=== PATIENT | female | born 1990 | race Caucasian/White ===

== ENCOUNTER → 2018-06-11 10:05 | Outpatient (CLI) | payer OTHER, MEDICAID, SELFPAY ==
--- NOTE | 2018-06-11 | DI.MG.S_ITS ---
BILATERAL DIGITAL DIAGNOSTIC MAMMOGRAM 3D/2D: 06/11/2018 CLINICAL: Baseline exam. Right breast tenderness and lump. No prior exams were available for comparison. The tissue of both breasts is heterogeneously dense. This may lower the sensitivity of mammography. There is a triangular marker overlying the skin of the upper inner right breast at middle depth at the site of the patient's reported palpable abnormality. There is no underlying mammographic abnormality. No significant masses, calcifications, or other findings are seen in either breast. IMPRESSION: INCOMPLETE: NEEDS ADDITIONAL IMAGING EVALUATION No mammographic abnormality to correlate with the site of the patient's reported focal palpable abnormality in the upper inner right breast. Targeted diagnostic ultrasound recommended for further evaluation, which will be performed immediately following this exam. This exam was interpreted at Station ID: [id number]. NOTE: For mammograms, a report in lay terms will be sent to the patient. Approximately 15% of breast malignancies will not be visualized mammographically. In the management of a palpable breast mass, a negative mammogram must not discourage biopsy of a clinically suspicious lesion. Electronically Signed By: Eldon Dykes M.D. ecl/:06/11/2018 10:43:16 letter sent: Additional Imaging Needed ACR BI-RADS Category 0: Incomplete [id number]
--- NOTE | 2018-06-11 | DI.US.S_ITS ---
LIMITED ULTRASOUND OF RIGHT BREAST: 06/11/2018 CLINICAL: Palpable tender right breast lump x 2 months. Comparison is made to exam dated: 06/11/2018 [facility]. Real-time and Doppler ultrasound of the right breast upper inner quadrant were performed. English scale images of the real-time examination were reviewed. Targeted ultrasound was performed in the region of the patient's reported focal tenderness and palpable abnormality in the right breast at 1:30 position 5 cm from the nipple. No underlying breast mass or abnormality is identified. IMPRESSION: NEGATIVE 1) No ultrasound findings to explain patient's reported focal tenderness and palpable abnormality in the right breast. Recommend clinical follow-up for further evaluation and management of the patient's reported symptoms. 2) There is no sonographic evidence of malignancy in the right breast. Annual screening mammography beginning at age 40 is recommended, unless earlier high-risk screening is warranted due to individual patient risk factors for the development of breast malignancy. The patient is advised to monitor her breasts and to return sooner for re-evaluation should she feel anything grow or change. This exam was interpreted at Station ID: [id number]. Electronically Signed By: Eldon Dykes M.D. ecl/:06/11/2018 11:15:13 letter sent: Clinical Evaluation Ultrasound BI-RADS: 1 Negative
== END ==
PROVIDERS: PCP Nurse Practitioner Family; Visit Provider Nurse Practitioner Family
DX: R92.8 Other abnormal and inconclusive findings on diagnostic imaging of breast (principal); N64.4 Mastodynia; N63.12 Unspecified lump in the right breast, upper inner quadrant
CPT/HCPCS: 76642; 77066; G0279

== ENCOUNTER → 2018-09-20 08:26 | Outpatient (CLI) | payer OTHER, MEDICAID, SELFPAY ==
--- NOTE | 2018-09-20 | DI.RAD.S_ITS ---
PROCEDURE: XR LUMBAR SPINE 2-3V INDICATIONS: LOW BACK PAIN TECHNIQUE: 3 views of the lumbar spine were acquired. COMPARISON: None. FINDINGS: Bones: There are 5 lumbar-type vertebral bodies. The lowest intervertebral disk space is designated as L5-S1. The vertebral body heights are well-maintained without evidence to suggest an acute compression fracture. The bone mineralization is within normal limits. There is a limbus vertebra identified along the anterior-inferior L3 endplate in the anterior-superior L4 end plate. Soft tissues: Single prominent air-filled small bowel loop within the midabdomen is not well characterized. Air and stool are seen within the colon. Otherwise, the soft tissues of the imaged abdomen and pelvis are within normal limits. IMPRESSION: 1. L3 and L4 limbus vertebra. 2. No significant degenerative changes of the lumbar spine. Dictated by: Carter Nuñez M.D. on 09/20/2018 at 10:42 Approved by: Carter Nuñez M.D. on 09/20/2018 at 10:55
== END ==
PROVIDERS: PCP Nurse Practitioner Family; Visit Provider Nurse Practitioner Family
DX: M54.5 Low back pain (principal)
CPT/HCPCS: 72100

== ENCOUNTER → 2019-10-09 15:43 | Outpatient (CLI) | payer OTHER, MEDICAID, SELFPAY ==
[2019-10-09 17:03] LABS: Add Manual Diff / Slide Review NO; Appearance Urine UA CLEAR; Basophils Absolute Auto 0 /uL (0-100); Basophils Percent Auto 0.5 % (0-2); Bilirubin Urine UA NEGATIVE (NEGATIVE); Color Urine UA YELLOW; Eosinophils Absolute Auto 100 /uL (0-450); Glucose Urine UA NEGATIVE (Negative); Hemoglobin 13.1 g/dL (12.0-16.0); Ketones Urine UA NEGATIVE (NEGATIVE); Leukocyte Esterase Urine UA NEGATIVE (NEGATIVE); Lymphocytes Absolute Auto 1800 /uL (1100-4500); Lymphocytes Percent Auto 25.9 % (25-40); Mean Corpuscular HGB Conc 34.6 % (30-36); Mean Corpuscular Hemoglobin 31.1 PG (26-34); Mean Corpuscular Volume 89.8 fL (80-100); Monocytes Absolute Auto 400 /uL (0-900); Neutrophils Absolute Auto 4700 /uL (1500-7000); Neutrophils Percent Auto 66.6 % (50-75); Nitrite Urine UA NEGATIVE (Negative); Occult Blood Urine UA TRACE-LYSED (Negative); Platelet Count 194 X10^3/uL (150-400); Protein Urine UA NEGATIVE (Negative); Red Blood Cell Count 4.23 X10^6/uL (4.0-5.2); Red Cell Distribution Width 13.5 % (11.6-14.8); Specific Gravity Urine UA 1.025 (1.000-1.035); Urobilinogen Urine UA 0.2 E.U./dL (0.2); White Blood Cell Count 7.1 X10^3/uL (4.5-11.0)
[2019-10-10 04:27] LABS: RPR Screen Non Reactive (Non Reactive)
[2019-10-10 09:20] LABS: Varicella IgG Antibody 175 index (Immune >165)
[2019-10-10 16:42] LABS: Hepatitis B Surface Antigen NEGATIVE s/c (NEGATIVE); Rubella Antibody IgG 94.6 IU/mL (>15)
[2019-10-10 16:58] LABS: HIV 1 & 2 Ab/Ag 4th Gen Combo NEGATIVE (NEGATIVE); Hep C Virus Ab w/Reflex Quant NEGATIVE s/c (NEGATIVE)
== END ==
PROVIDERS: PCP Nurse Practitioner Family; Referring Provider Specialist; Visit Provider Specialist
DX: Z34.01 Encounter for supervision of normal first pregnancy, first trimester (principal)
CPT/HCPCS: 36415; 80055; 81003; 86787; 86803; 86850; 86900; 86901; 87389

== ENCOUNTER → 2019-11-13 11:01 | Outpatient (CLI) | payer OTHER, MEDICAID, SELFPAY ==
[2019-11-13 14:36] LABS: Urine N gonorrhoeae NOT DETECTED
[2019-11-13 14:39] LABS: Urine Chlamydia NOT DETECTED
== END ==
PROVIDERS: PCP Nurse Practitioner Family; Visit Provider Specialist
DX: Z11.3 Encounter for screening for infections with a predominantly sexual mode of transmission (principal); Z34.02 Encounter for supervision of normal first pregnancy, second trimester
CPT/HCPCS: 87491; 87591

== ENCOUNTER → 2020-02-06 08:01 | Outpatient (CLI) | payer OTHER, MEDICAID, SELFPAY ==
--- NOTE | 2020-02-06 08:02 | DI.US.S_ITS ---
PROCEDURE: US OB LIMITED INDICATIONS: F/U ANT ABD WALL CORD/PLACENTAL CORD INSERTION, KIDNEYS OUTSIDE/PRIOR DATING DATA: Last menstrual period (LMP): 08/07/19. LMP-based estimated date of delivery (ALBERT): 05/13/20 . First dating scan (date and location): 10/09/19, by Dr. Dominguez . Estimated date of delivery (ALBERT) from first dating scan: 05/09/[address] Vera . TECHNIQUE: Real-time scanning was performed of the fetus, with image documentation and biometric measurements. Endovaginal scanning: Not needed COMPARISON: None. FINDINGS: General: A single living intrauterine gestation is present. Presentation: Placenta: Placental position is anterior, without previa. Amniotic fluid index: 13.5 cm, normal range is 5-24 cm. heart rate: 131 beats per minute. Other: No hydronephrosis appears present. Cortical echogenicity is in the normal range. The orthotopic cord insertion. IMPRESSION: Completion of anatomic survey, with kidneys and orthotopic three-vessel cord insertion identified.. Dictated by: Jorge Morales M.D. on 02/06/2020 at 12:10 Approved by: Jorge Morales M.D. on 02/06/2020 at 12:16
== END ==
PROVIDERS: Referring Provider Specialist; Visit Provider Specialist
DX: Z36.2 Encounter for other antenatal screening follow-up (principal); Z3A.20 20 weeks gestation of pregnancy
CPT/HCPCS: 76815

== ENCOUNTER → 2020-04-14 18:11 | Outpatient (CLI) | payer OTHER, SELFPAY ==
[2020-04-15 15:03] LABS: Strep Grp B PCR NEG for Grp B Strep
== END ==
PROVIDERS: Visit Provider Obstetrics & Gynecology
DX: Z34.03 Encounter for supervision of normal first pregnancy, third trimester (principal); Z3A.36 36 weeks gestation of pregnancy
CPT/HCPCS: 87653

== ENCOUNTER 2020-05-13 11:45 | Outpatient (CLI) | payer OTHER, SELFPAY ==
--- NOTE | 2020-05-13 13:31 | PM.OBTRLD ---
Visit Information Visit Information Date of evaluation: 05/13/20 Primary OB Provider: Lisa Martin Reason for Evaluation: Yes non-stress test non-stress test reason: other (Postdates) [facility] Medical History (Updated 05/13/20 @ 13:33 by Lisa Martin MD) 40 weeks gestation of Breast lump Surgical History (Updated 10/09/19 @ 11:11 by Milly Decker, RN) [place] teeth removed (~2019) Family History (Updated 10/09/19 @ 11:07 by Milly Decker, RN) Father Benign brain tumor Mother Bipolar 1 disorder Depression Alcohol abuse Anxiety Grandfather No problems noted. Grandmother No problems noted. Grandfather Myocardial infarction Hypertension Grandmother Alzheimers disease Family/Other Myocardial infarction Hypertension Hypothyroid Social History marital status: unmarried,living together household members: family caregiver/support person: No pets and animals: No education level: high school occupational status: unemployed current occupational exposures/hazards: Yes Previous occupational history: [email or web address] Covid-19 special buffy needs: No Smoking Status: Never smoker second hand exposure: No alcohol intake: never substance use type: marijuana Evaluation Evaluation Baseline heart rate: 120 Variability: Moderate (11-25) monitor accelerations: Present monitor decelerations: Variable (Patient with concern for deceleration initially but after prolonged monitoring just low baseline) Contraction Frequency (minutes): 8 Uterine Contraction Intensity: Mild Category of Tracing: Reactive Diagnosis, Plan/Disposition Final Diagnosis (1) 40 weeks gestation of : Status: Acute Plan/Disposition Plan: Patient with rest biophysical within normal limits and normal amniotic fluid volume. Follow-up NST in 3 days. OB Disposition: home
== END 2020-05-13 13:30 | disposition home or self-care (01) ==
LOC: LABOR 12:30 → OB 16:49
PROVIDERS: Referring Provider Specialist; Visit Provider Specialist
DX: O48.0 Post-term pregnancy (principal); Z3A.41 41 weeks gestation of pregnancy
CPT/HCPCS: 59025; 59050; G0378; G0379

== ENCOUNTER 2020-05-16 09:46 | Outpatient (CLI) | payer OTHER, SELFPAY ==
--- NOTE | 2020-05-16 10:11 | PM.OBTRLD ---
Visit Information Visit Information Date of evaluation: 05/16/20 Primary OB Provider: Lisa Martin On-call OB Provider: Cheyenne Vargas Reason for Evaluation: Yes non-stress test non-stress test reason: other (Postdates) Vital Signs Vital Signs: Temperature 36.2? blood pressure 108/67 heart rate 55 PFSH Medical History (Updated 05/13/20 @ 13:33 by Lisa Martin MD) 40 weeks gestation of Breast lump Surgical History (Updated 10/09/19 @ 11:11 by Milly Decker, RN) [place] teeth removed (~2019) Family History (Updated 10/09/19 @ 11:07 by Milly Decker, LEONA) Father Benign brain tumor Mother Bipolar 1 disorder Depression Alcohol abuse Anxiety Grandfather No problems noted. Grandmother No problems noted. 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 NST reactive. Follow-up with Dr. Martin as scheduled in 2 days. OB Disposition: home
== END 2020-05-16 10:20 | disposition home or self-care (01) ==
LOC: LABOR 09:53 → OB 05-18 15:40
PROVIDERS: Referring Provider Specialist; Visit Provider Specialist
DX: O48.0 Post-term pregnancy (principal); Z3A.40 40 weeks gestation of pregnancy
CPT/HCPCS: 59025; G0378; G0379

== ENCOUNTER 2020-05-17 09:36 | Inpatient (IN) | payer OTHER, SELFPAY ==
--- NOTE | 2020-05-17 10:51 | P.HPOB_ITS ---
OB HPI Date/Time Date of admission: 05/17/20 Date Patient Seen: 05/17/20 Time Patient Seen: 10:53 History of Present Condition Chief complaint: observation : 1 Para: 0 Estimated Date of Delivery: 05/10/20 Estimated Gestational Age (weeks): 41 Narrative: Ewa Nobles is a 30 year old at 41 weeks 0 days presenting for evaluation for ruptured membranes. The patient reports a gush of mucousy fluid at 3:45 a.m., with ongoing leakage of bloody fluid. The patient is unclear if this is mucousy or liquid, if there is any clear component, and the other characteristics of the liquid. She reports good movement, contractions irregularly, no headaches, visual changes, chest pain, or any other complaints. She reports an otherwise uncomplicated , and has no contributory medical, surgical, family, or social history. Indications Indication for induction OB: post dates History of Present care: good care, initiated at week # (9), number of visits (13) and po unds weight gain (38) Dating criteria: LMP confirmed by 1st trimester US Ultrasounds: normal 1st trimester US and normal mid trimester US Obstetrical complications: none Medical complications: none Preadmission Labs Blood type: A (+) positive -: Antibody screen: negative, GBS status: negative, HBsAG: negative, HIV: negative and RPR/VDLR: negative -: Chlamydia screen: not detected and Gonorrhea screen: not detected -: Rubella: immune and Varicella: immune 1 hr GTT: 59 Narrative: Evaluation Evaluation Baseline heart rate: 120 Variability: Moderate (11-25) monitor accelerations: Present monitor decelerations: Absent Contraction Frequency (minutes): 5 Uterine Contraction Intensity: Moderate Category of Tracing: Reactive Status: Category l Cervical dilation (cm): 1 Cervical effacement (%): 60 station: -3 Non-invasive Membranes Rupture Test: positive (in setting of blood) PFSH Medical History 40 weeks gestation of Breast lump Surgical History [place] teeth removed (~2019) Family History Father Benign brain tumor Mother Bipolar 1 disorder Depression Alcohol abuse Anxiety Grandfather No problems noted. Grandmother No problems noted. 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 Covid-19 special buffy needs: No Smoking Status: Never smoker second hand exposure: No alcohol intake: never substance use type: marijuana Meds Home Medications and Allergies Home Medications Medication Instructions Recorded Confirmed Type prenat.vits,chase,bdz-jrmi-wdbtm 1 tab PO DAILY 10/09/19 05/13/20 History ondansetron 4 mg disintegrating See Rx Instructions .ROUTE 11/04/19 05/13/20 Rx tablet .COMPLEX #20 each Allergies Allergy/AdvReac Type Severity Reaction Status Date / Time Penicillins Allergy Severe Extreme Verified 04/22/20 09:31 Hives Review of Systems Constitutional Constitutional: Reports system reviewed and no additional complaints, except as documented Cardiovascular Cardiovascular: Reports system reviewed and no additional complaints, except as documented Respiratory Respiratory: Reports system reviewed and no additional complaints, except as documented Gastrointestinal Gastrointestinal: Reports system reviewed and no additional complaints, except as documented Genitourinary Genitourinary: Reports as per HPI Neurologic Neurologic: Reports system reviewed and no additional complaints, except as documented Exam Vital Signs (past 8 hours): 119/66, HR 65, afebrile Const General: cooperative, healthy appearing and comfortable Resp Effort & Inspection: normal respiratory effort Auscultation: clear to auscultation bilaterally Cardio Rate: regular rate Rhythm: regular rhythm GI Palpation: soft and No tender Neuro General: patient alert, patient awake and patient oriented x3 Assessment and Plan Assessment and Plan Assessment and Plan narrative: This patient presents with apparent ruptured membranes at 41 weeks, with leakage of either bloody fluid or more bloody show than is typical and a history consistent with SROM. The patient wishes to desire induction if possible, but we discussed that in the setting of PROM, the guidelines are to expedite delivery to decrease the risk of maternal and infection. The patient and her partner are in agreement with induction of labor if she is not found to be laboring after a short period of expectant management. - CBC, T&S, covid testing now - HLIV, EFM/toco per protocol - GBS negative - EFW 8#
--- NOTE | 2020-05-17 16:31 | PM.OBHP.1 ---
OB HPI Date/Time Date of admission: 05/17/20 Date Patient Seen: 05/17/20 Time Patient Seen: 16:31 History of Present Condition Chief complaint: observation : 1 Para: 0 Estimated Date of Delivery: 05/10/20 Estimated Gestational Age (weeks): 41 Narrative: Ewa Nobles is a 30 year old female admitted in active labor History of Present care: good care, initiated at week # (9), number of visits (14) and pounds weight gain (38) Dating criteria: LMP confirmed by 1st trimester US Obstetrical complications: none Medical complications: none Preadmission Labs Blood type: A (+) positive -: Antibody screen: negative, GBS status: negative, HBsAG: negative, HIV: negative and RPR/VDLR: negative -: Chlamydia screen: not detected and Gonorrhea screen: not detected -: Rubella: immune HCAB: negative 1 hr GTT: 69 Evaluation Evaluation Baseline heart rate: 120 Variability: Moderate (11-25) monitor accelerations: Present monitor decelerations: Absent Contraction Frequency (minutes): 4 Uterine Contraction Intensity: Strong/Firm Status: Category l Cervical dilation (cm): 3 Cervical effacement (%): 100 station: -1 Non-invasive Membranes Rupture Test: positive [facility] Medical History 40 weeks gestation of Breast lump Surgical History [place] teeth removed (~2019) Family History Father Benign brain tumor Mother Bipolar 1 disorder Depression Alcohol abuse Anxiety Grandfather No problems noted. Grandmother No problems noted. 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 Covid-19 special buffy needs: No Smoking Status: Never smoker second hand exposure: No alcohol intake: never substance use type: marijuana Meds Home Medications and Allergies Home Medications Medication Instructions Recorded Confirmed Type prenat.vits,chase,ygo-ynny-qvfpy 1 tab PO DAILY 10/09/19 05/13/20 History ondansetron 4 mg disintegrating See Rx Instructions .ROUTE 11/04/19 05/13/20 Rx tablet .COMPLEX #20 each Allergies Allergy/AdvReac Type Severity Reaction Status Date / Time Penicillins Allergy Severe Extreme Verified 04/22/20 09:31 Hives Review of Systems Review of Systems Narrative: Patient with unclear rupture membranes 3:30 a.m. good movement. No headaches, scotomata, epigastric pain. ROS: Yes All systems reviewed with the patient and are negative except as otherwise documented Exam Narrative Exam Narrative: HEENT exam within normal limits. Lungs are clear to auscultation percussion. Heart is regular rate and rhythm no S3-S4 murmurs. Abdomen is gravid and soft. Extremities with trace edema and nontender. Assessment and Plan Assessment and Plan Assessment and Plan narrative: 41 week gestation in active labor. Anticipate vaginal delivery.
[2020-05-17 16:56] LABS: Add Manual Diff / Slide Review NO; Basophils Absolute Auto 0 /uL (0-100); Basophils Percent Auto 0.4 % (0-2); Eosinophils Absolute Auto 0 /uL (0-450); Eosinophils Percent Auto 0.1 % (2-4); Hematocrit 39.1 % (36-46); Hemoglobin 13.7 g/dL (12.0-16.0); Lymphocytes Absolute Auto 1000 /uL (1100-4500); Mean Corpuscular Hemoglobin 32.8 PG (26-34); Mean Corpuscular Volume 93.9 fL (80-100); Monocytes Absolute Auto 700 /uL (0-900); Monocytes Percent Auto 5.6 % (3-14); Neutrophils Absolute Auto 10400 /uL (1500-7000); Neutrophils Percent Auto 85.9 % (50-75); Platelet Count 140 X10^3/uL (150-400); Red Blood Cell Count 4.16 X10^6/uL (4.0-5.2); Red Cell Distribution Width 12.6 % (11.6-14.8)
[2020-05-17 17:02] LABS: COVID19 -Nasal RAPID Negative (Negative)
[2020-05-17 19:40] VITALS: BP 119/66
[2020-05-17] MEDS: LACTATED RINGERS 1,000 ML 100 ML IV (21:10)
[2020-05-17] MEDS: LACTATED RINGERS 1,000 ML 125 ML IV (22:10)
[2020-05-18] MEDS: LACTATED RINGERS 1,000 ML 100 ML IV (03:28)
--- NOTE | 2020-05-18 05:42 | PM.OBPRVD ---
Labor & Delivery Delivery date: 05/18/20 Intrapartal events: Prolonged 2nd Stage > 2.5 hours Delivery augmentation: pitocin Delivery monitor: external FHT and external uterine Route of delivery: L&D Laceration Description: Perineal - 2nd Degree Delivery repair: chromic (3 0) Estimated blood loss (mL): 100 Anesthesia type: Epidural Narrative: Patient arrived on Labor and delivery in early labor. Amnio sure was positive but was contaminated by blood. It did appear that she had rupture of membranes significantly later. Patient received an epidural catheter for pain control. heart tones category 1 to category 2. Pitocin augmentation was started after contractions spaced out with the epidural. When the patient became complete there was a 10 minute deceleration from the baseline 120 is down to 60. Pitocin was turned off, fluid bolus was given, O2 was given. The fetus appeared to recover and so pushing was begun. The patient developed a fever to 101. heart tones category 2. Patient had a spontaneous delivery over an intact perineum. The viable male was placed on maternal abdomen. After the cord stopped pulsating the cord was clamped, cut, and cord bloods obtained. The placenta delivered spontaneously, intact, with 3 vessels. There were to sidewall vaginal tears and a second-degree midline perineal tear that were repaired with 3 0 chromic suture. Estimated blood loss 100 cc. Both baby and mother doing well. Baby 1: Infant gender: Male Presentation: vertex position: Right Occiput Anterior cord vessel description: 3 Vessels score (1 min): 8 score (5 min): 9 Plan for aftercare: Routine care
[2020-05-18] MEDS: IBUPROFEN 600 MG TABLET PO ×3 (08:57→21:34)
[2020-05-18] MEDS: LANOLIN OINT 7 GM 1 APPLIC TOP (08:57)
[2020-05-18] MEDS: DERMOPLAST SPRAY 20% 60 ML 1 SPRAY TOP (08:58)
[2020-05-18] MEDS: OXYCODONE/ACETAMINOPHEN 5/325 TABLET 1 TAB PO ×2 (11:58→18:00)
[2020-05-18] MEDS: DOCUSATE 100 MG CAPSULE PO (21:35)
[2020-05-19] MEDS: IBUPROFEN 600 MG TABLET PO (06:21)
[2020-05-19 06:48] LABS: Add Manual Diff / Slide Review NO; Basophils Absolute Auto 0 /uL (0-100); Basophils Percent Auto 0.4 % (0-2); Eosinophils Absolute Auto 100 /uL (0-450); Eosinophils Percent Auto 0.8 % (2-4); Hematocrit 30.6 % (36-46); Hemoglobin 10.8 g/dL (12.0-16.0); Lymphocytes Absolute Auto 2100 /uL (1100-4500); Mean Corpuscular HGB Conc 35.1 % (30-36); Mean Corpuscular Hemoglobin 33.5 PG (26-34); Mean Corpuscular Volume 95.2 fL (80-100); Monocytes Absolute Auto 900 /uL (0-900); Monocytes Percent Auto 8.2 % (3-14); Neutrophils Absolute Auto 8400 /uL (1500-7000); Neutrophils Percent Auto 72.6 % (50-75); Platelet Count 125 X10^3/uL (150-400); Red Blood Cell Count 3.21 X10^6/uL (4.0-5.2); White Blood Cell Count 11.5 X10^3/uL (4.5-11.0)
[2020-05-19 09:21] VITALS: BP 110/70; PULSE 73; RESP 16; TEMP 36.7
--- NOTE | 2020-05-19 10:52 | PM.OBDS.1 ---
Discharge Providers Provider Date of admission: 05/17/20 09:36 Discharge Date: 05/19/20 Consults: 05/17/20 14:55 Consult to Anesthesiology Urgent Comment: Consulting Provider: Anesthesiologist Reason for consultation: Epidural Has provider been notified: No 05/19/20 05:41 Consult to Sales Marketing Coordinator Routine Comment: Discharge provider: Lisa Martin MD Summary Hospital Course Date Patient Seen: 05/19/20 Time Patient Seen: 10:52 Procedures: Epidural catheter, Pitocin augmentation, spontaneous vaginal delivery, repair of second-degree tear Hospital Course: Patient arrived on Labor and delivery in active labor. She received an epidural catheter for pain control. She was started on Pitocin to augment labor. She had a spontaneous vaginal delivery with a repair of a second-degree tear Peripartum Data Delivery Method: Natural Vaginal Laceration Description: Perineal - 2nd Degree and Vaginal - 1st Degree Procedures: Epidural catheter, spontaneous vaginal delivery, repair of second-degree tear complications: none 1: Gender: Male Disposition of : home Discharge Diagnosis (1) Vaginal delivery: Status: Acute Status at Discharge Cognitive/behavioral status at discharge: oriented Functional status at discharge: independent ambulation Overall status at discharge: patient is progressing back to baseline Time Spent with Patient Time attestation: Total time spent providing and/or coordinating discharge services: Time spent: Less than 30 minutes Objective Labs Result Diagrams: 05/19/20 06:30 Labs: Laboratory Results - last 24 hr 05/19/20 06:30 WBC 11.5 H RBC 3.21 L Hgb 10.8 L Hct 30.6 L MCV 95.2 MCH 33.5 MCHC 35.1 RDW 13.0 Plt Count 125 L Neut % (Auto) 72.6 Lymph % (Auto) 18.0 L [place] % (Auto) 8.2 Eos % (Auto) 0.8 L Baso % (Auto) 0.4 Neut # (Auto) 8400 H Lymph # (Auto) 2100 [place] # (Auto) 900 Eos # (Auto) 100 Baso # (Auto) 0 Exam Vital Signs (past 8 hours): - 05/19/20 09:21 Temperature 98.0 F Pulse Rate 73 Respiratory Rate 16 Blood Pressure 110/70 Narrative Exam Narrative: Abdomen is soft, nontender. Uterus is firm, at U, nontender. Repair is intact. Extremities with trace edema and nontender. Patient's blood type is A positive, she is rubella immune, she received the Tdap in the 3rd trimester Discharge Plan Discharge Plan Patient Disposition: Home Discharge orders & Medications Prescriptions: New docusate sodium [DOK] 100 mg Capsule 100 mg PO DAILY Qty: 30 RF: 0 oxycodone-acetaminophen 5-325 mg Tablet 1 tab PO Q4HR PRN (Reason: Pain, Moderate (4-6)) Qty: 20 RF: 0 ibuprofen 600 mg Tablet 600 mg PO Q6HR PRN (Reason: Pain, Mild (1-3)) Qty: 30 RF: 0 Continued prenat.vits,chase,wwi-gbcc-wpeuz Tablet 1 tab PO DAILY RF: 0 Follow up/Referrals: Lisa Martin MD [Physician] - 07/01/20 (Will need a time in [place]) Diet/Activity/Treatments Diet: Regular Activity: Nothing in vagina for 6 weeks Skin/Wound/Dressing Care Report to your healthcare provider any signs of infection, such as:: chills, fever and increased pain
[2020-05-19] MEDS: LANOLIN OINT 7 GM 1 APPLIC TOP (12:03)
== END 2020-05-19 15:00 | disposition home or self-care (01) | DRG 807 ==
PROVIDERS: Admitting Provider Specialist; Referring Provider Specialist; Visit Provider Specialist
DX: O48.0 Post-term pregnancy (principal); Z37.0 Single live birth; Z3A.41 41 weeks gestation of pregnancy; O63.1 Prolonged second stage (of labor); Z01.812 Encounter for preprocedural laboratory examination; Z20.828 Contact with and (suspected) exposure to other viral communicable diseases; O70.1 Second degree perineal laceration during delivery
CPT/HCPCS: 01967; 36415; 59025; 59050; 59400; 85025; 86850; 86900; 86901; 87635; G0379

== ENCOUNTER → 2020-10-30 11:50 | Outpatient (CLI) | payer OTHER, SELFPAY | PROVIDERS: PCP Family Medicine; Visit Provider Family Medicine | DX: N64.4 Mastodynia (principal) | CPT/HCPCS: 87070; 87075; 87077; 87147; 87186; 87205 ==

== ENCOUNTER → 2022-01-05 10:00 | Outpatient (CLI) | payer OTHER, MEDICAID, SELFPAY | PROVIDERS: PCP Family Medicine; Visit Provider Nurse Practitioner Family | DX: J02.9 Acute pharyngitis, unspecified (principal) | CPT/HCPCS: 87070; 87880 ==

== ENCOUNTER → 2022-10-06 11:34 | Outpatient (CLI) | payer OTHER, MEDICAID, SELFPAY | PROVIDERS: PCP Family Medicine; Visit Provider Obstetrics & Gynecology | DX: Z34.81 Encounter for supervision of other normal pregnancy, first trimester (principal) | CPT/HCPCS: 87086 ==

== ENCOUNTER → 2022-10-20 11:31 | Outpatient (CLI) | payer OTHER, MEDICAID, SELFPAY ==
[2022-10-20 12:47] LABS: Add Manual Diff / Slide Review NO; Basophils Absolute Auto 0 /uL (0-100); Basophils Percent Auto 0.5 % (0-2); Eosinophils Absolute Auto 100 /uL (0-450); Eosinophils Percent Auto 1.3 % (2-4); Hematocrit 34.2 % (36-46); Hemoglobin 11.9 g/dL (12.0-16.0); Lymphocytes Absolute Auto 1900 /uL (1100-4500); Lymphocytes Percent Auto 29.1 % (25-40); Mean Corpuscular HGB Conc 34.8 % (30-36); Mean Corpuscular Hemoglobin 30.6 PG (26-34); Monocytes Absolute Auto 300 /uL (0-900); Monocytes Percent Auto 5.1 % (3-14); Neutrophils Absolute Auto 4300 /uL (1500-7000); Platelet Count 210 X10^3/uL (150-400); Red Blood Cell Count 3.88 X10^6/uL (4.0-5.2); Red Cell Distribution Width 13.4 % (11.6-14.8); White Blood Cell Count 6.7 X10^3/uL (4.5-11.0)
[2022-10-20 13:42] LABS: Hepatitis B Surface Antigen NEGATIVE s/c (NEGATIVE); Rubella Antibody IgG 92.5 IU/mL (>15)
[2022-10-20 13:52] LABS: HIV 1 & 2 Ab/Ag 4th Gen Combo NEGATIVE (NEGATIVE); Hep C Virus Ab w/Reflex Quant NEGATIVE s/c (NEGATIVE)
[2022-10-21 05:49] LABS: RPR Screen Non Reactive (Non Reactive)
[2022-10-21 08:36] LABS: Varicella IgG Antibody 236 index (Immune >165)
== END ==
PROVIDERS: PCP Family Medicine; Referring Provider Obstetrics & Gynecology; Visit Provider Obstetrics & Gynecology
DX: Z34.81 Encounter for supervision of other normal pregnancy, first trimester (principal)
CPT/HCPCS: 36415; 80055; 86787; 86803; 86850; 86900; 86901; 87389

== ENCOUNTER → 2022-11-29 11:46 | Outpatient (CLI) | payer OTHER, MEDICAID, SELFPAY ==
[2022-12-01 21:42] LABS: AFP Value 39.2 ng/mL (.); Gest Age on Col Date 16.7 weeks (.); Insulin Dep Diabetes No (.); OSBR Risk 1IN 9231 (.); Results Report (.); Test Results *Screen Negative* (.)
== END ==
PROVIDERS: PCP Family Medicine; Referring Provider Obstetrics & Gynecology; Visit Provider Obstetrics & Gynecology
DX: Z34.82 Encounter for supervision of other normal pregnancy, second trimester (principal); Z3A.16 16 weeks gestation of pregnancy
CPT/HCPCS: 36415; 82105

== ENCOUNTER → 2022-12-28 12:57 | Outpatient (CLI) | payer OTHER, MEDICAID, SELFPAY ==
--- NOTE | 2022-12-28 12:58 | DI.US.S_ITS ---
PROCEDURE: US OB >= 14 WEEKS FETUS INDICATIONS: ANATOMY OUTSIDE/PRIOR DATING DATA: Last menstrual period (LMP): 08/04/2022. LMP-based estimated date of delivery (ALBERT): 05/11/2023. First dating scan (date and location): 10/06/2022. Estimated date of delivery (ALBERT) from first dating scan: 05/10/2023. The calculations are made using the clinical ALBERT of 05/11/2023. TECHNIQUE: Real-time scanning was performed of the fetus, with image documentation and biometric measurements. Endovaginal scanning: None COMPARISON: [facility], , OB >= 14 WEEKS FETUS, 05/13/2020, 11:31. FINDINGS: General: A single living intrauterine gestation is present. Presentation: Vertex. Placenta: Placental position is anterior , without previa. Amniotic fluid index: 16.6 cm, normal range is 5-24 cm. Single deepest vertical pocket is 4.6 cm. heart rate: 140 beats per minute. Maternal cervical canal: 3.3 cm long. Normal lower limit is 2.5 cm. biometrics: Biparietal diameter: 5.0 cm, 21 week 0 day Head circumference: 19.1 cm, 21 week 3 day Abdominal circumference: 15.4 cm, 20 week 4 day Femur length: 3.5 cm, 21 week 0 day Clinically estimated gestational age: 20 week 6 day Composite gestational age from present scan: 21 week 0 day Estimated weight and percentile: 381 g, 44 percentile Anatomic survey: Neuro: Ventricles are non-dilated at less than 10 mm. Cisterna magna is normal at 3-11 mm. Cerebellum is normal in size and morphology. Nuchal skin fold: Normal at less than 6 mm between 14-21 weeks gestational age. Face: Nose and lips, facial profile are normal. Spine: No evidence for spina bifida. Heart: 4-chambered heart is present, with normal ventricular outflow tracts. Diaphragm: Diaphragm is intact. Stomach: Left-sided stomach is present. Kidneys: No hydronephrosis. Normal is less than 5 mm in 2nd trimester, less than 7 mm in 3rd trimester. Cord: 3-vessel cord has orthotopic insertion. Bladder: Normal in size. Extremities: All 4 extremities identified. IMPRESSION: Single live intrauterine consistent with a 21 week 0 day gestation by current ultrasound Approved by: Hermes Muhammad M.D. on 12/28/2022 at 19:45
== END ==
PROVIDERS: PCP Family Medicine; Referring Provider Obstetrics & Gynecology; Visit Provider Obstetrics & Gynecology
DX: Z34.82 Encounter for supervision of other normal pregnancy, second trimester (principal); Z3A.21 21 weeks gestation of pregnancy
CPT/HCPCS: 76811

== ENCOUNTER → 2023-01-24 14:04 | Outpatient (CLI) | payer OTHER, MEDICAID, SELFPAY ==
[2023-01-24 16:44] LABS: Hematocrit 32.1 % (36-46); Hemoglobin 11.6 g/dL (12.0-16.0)
[2023-01-24 17:46] LABS: GTT (PREG) 1 Hour PP 50gm Dose 68 mg/dL (76-139)
== END ==
PROVIDERS: PCP Family Medicine; Referring Provider Obstetrics & Gynecology; Visit Provider Obstetrics & Gynecology
DX: Z34.82 Encounter for supervision of other normal pregnancy, second trimester (principal); Z3A.26 26 weeks gestation of pregnancy
CPT/HCPCS: 36415; 82950; 85014; 85018

== ENCOUNTER → 2023-04-18 11:33 | Outpatient (CLI) | payer OTHER, MEDICAID, SELFPAY ==
[2023-04-19 13:25] LABS: Strep Grp B PCR POS for Grp B Strep
[2023-04-19 15:37] LABS: Candida species Negative (Negative); Gardnerella vaginalis Negative (Negative); Trichomoas vaginalis Negative (Negative)
== END ==
PROVIDERS: PCP Family Medicine; Visit Provider Obstetrics & Gynecology
DX: N89.8 Other specified noninflammatory disorders of vagina (principal); Z3A.36 36 weeks gestation of pregnancy
CPT/HCPCS: 87081; 87480; 87510; 87653; 87660

== ENCOUNTER 2023-05-13 19:16 | Inpatient (IN) | payer OTHER, MEDICAID, SELFPAY ==
[2023-05-13 21:46] VITALS: BP 126/71
[2023-05-13 21:49] LABS: Add Manual Diff / Slide Review NO; Basophils Absolute Auto 100 /uL (0-100); Basophils Percent Auto 0.8 % (0-2); Eosinophils Absolute Auto 100 /uL (0-450); Eosinophils Percent Auto 1.1 % (2-4); Hematocrit 35.5 % (36-46); Hemoglobin 12.3 g/dL (12.0-16.0); Lymphocytes Absolute Auto 2400 /uL (1100-4500); Mean Corpuscular HGB Conc 34.8 % (30-36); Mean Corpuscular Hemoglobin 32.3 PG (26-34); Mean Corpuscular Volume 92.7 fL (80-100); Monocytes Absolute Auto 700 /uL (0-900); Monocytes Percent Auto 6.9 % (3-14); Neutrophils Absolute Auto 6800 /uL (1500-7000); Neutrophils Percent Auto 67.2 % (50-75); Platelet Count 135 X10^3/uL (150-400); Red Blood Cell Count 3.83 X10^6/uL (4.0-5.2); Red Cell Distribution Width 13.1 % (11.6-14.8); White Blood Cell Count 10.1 X10^3/uL (4.5-11.0)
[2023-05-13] MEDS: fentaNYL 100 MCG/2 ML INJ (22:15)
[2023-05-13] MEDS: CLINDAMYCIN 900 MG/50 ML PIGGYBACK 50 MG IV (22:19)
[2023-05-13] MEDS: fentaNYL 100 MCG/2 ML INJ IV (22:19)
[2023-05-13] MEDS: LACTATED RINGERS 1,000 ML 100 ML IV (22:19)
[2023-05-14] MEDS: LACTATED RINGERS 1,000 ML 1000 ML IV (00:52)
[2023-05-14] MEDS: ONDANSETRON 4 MG/2 ML INJ IV (00:55)
--- NOTE | 2023-05-14 05:42 | PM.OBHP.1 ---
OB HPI Date/Time Date of admission: 05/13/23 Date Patient Seen: 05/14/23 Time Patient Seen: 04:42 History of Present Condition Chief complaint: labor : 4 Para: 1 Estimated Date of Delivery: 05/11/23 Estimated Gestational Age (weeks): 40W 5D Narrative: Ewa Nobles is a 33 year old female AB2. Patient presents to labor and delivery on the evening of the 13 of May. At that point she was 4 cm and decided to keep her. She currently resides on [address] and has been staying locally at term. She would an epidural placed for labor analgesia. Her course was unremarkable at this time with the exception of being group B strep positive. She is also penicillin allergic. She has a history of hemorrhage with her 1st delivery. History of Present care: good care, initiated at week # (Nine weeks), number of visits (12) and pounds weight gain (29 lb) Dating criteria: LMP confirmed by 1st trimester US Ultrasounds: normal 1st trimester US and normal mid trimester US Preadmission Labs Blood type: A (+) positive -: Antibody screen: negative, GBS status: positive (Penicillin allergic), HIV: negative and RPR/VDLR: negative -: Chlamydia screen: not detected and Gonorrhea screen: not detected -: Rubella: immune and Varicella: immune HCT: 11.7 Prior (ies) History: Patient has a history of hemorrhage with her 1st delivery. However she did not receive any transfusion. Evaluation Evaluation Baseline heart rate: 120 monitor accelerations: Present Monitor Decelerations: Late (Responded to intervention.) and Variable Uterine Contraction Intensity: Strong/Firm Category of Tracing: Reactive Status: Category l Dilation (cm): 3 PFSH Medical History (Updated 03/14/23 @ 13:39 by Angi Rivera MD) Breast pain Vaginal delivery (~05/18/20) Breast lump Surgical History [place] teeth removed (~2018) Family History (Updated 09/20/22 @ 14:18 by Angelia Tyler RN) Father Benign brain tumor Mother Bipolar 1 disorder Depression Alcohol abuse Anxiety Grandfather Family estrangement Grandmother Liver disease Grandfather Myocardial infarction Hypertension Grandmother Alzheimers disease Family/Other Myocardial infarction Hypertension Hypothyroid Brother Benign tumor Social History marital status: number of children: 1 household members: spouse and children lives independently: Yes caregiver/support person: Yes housing: other (moving from condo to boat) pets and animals: No education level: college (Associates degree) occupational status: employed and unemployed current occupational exposures/hazards: No Previous occupational history: [employer] Covid-19 special buffy needs: No travel history: over 6 months ago seatbelt use: always helmet use: Yes water heater temp set < 120 deg: Yes working smoke detector in home: Yes fire extinguisher in home: Yes carbon monox detector in home: Yes firearms in home: Yes firearms unloaded and locked: Yes do you feel safe at home: Yes (some issues w/ neighbors, but reports relationship is safe) Smoking Status: Never smoker second hand exposure: No alcohol intake: never substance use type: marijuana during the past year weight has: remained stable well-balanced diet: rarely or never daily servings fruits/ve-1 caffeine: Yes additional social history: Counseled that she should not use MJ products when and/or Meds Home Medications and Allergies Home Medications Medication Instructions Recorded Confirmed Type prenat.vits,chase,ogf-piza-hnomk 1 tab PO DAILY 10/09/19 05/14/23 History cholecalciferol (vitamin D3) 50 50 mcg PO DAILY 09/20/22 05/14/23 History mcg (2,000 unit) capsule (D3-1999) Allergies Allergy/AdvReac Type Severity Reaction Status Date / Time Penicillins Allergy Severe Extreme Verified 05/12/23 11:03 Hives OB Exam Vital signs Blood Pressure: 111/54 Pulse Rate: 79 Temperature: 98.1 F HENMT Head: normal to inspection, normocephalic and atraumatic Mouth: oral mucosae normal, lip normal, tongue normal and other (Teeth showed adequate repair.) Eyes General: appearance normal, both eyes and all related structures Direct ophthalmoscopy: no photophobia Other: EOM Resp Effort & Inspection: normal respiratory effort Auscultation: clear to auscultation bilaterally Cardio Rate: regular rate Rhythm: regular rhythm GI Inspection: normal to inspection Palpation: Yes soft and Yes mass (Uterus palpated roughly at the umbilicus.) External Female Exam: Yes normal external appearance and Yes other (Following delivery had a second-degree laceration the rectal sphincter inta) Objective Labs 05/13/23 21:10 Labs: Laboratory Results - last 24 hr 05/13/23 21:10 WBC 10.1 RBC 3.83 L Hgb 12.3 Hct 35.5 L MCV 92.7 MCH 32.3 MCHC 34.8 RDW 13.1 Plt Count 135 L Neut % (Auto) 67.2 Lymph % (Auto) 24.0 L [place] % (Auto) 6.9 Eos % (Auto) 1.1 L Baso % (Auto) 0.8 Neut # (Auto) 6800 Lymph # (Auto) 2400 [place] # (Auto) 700 Eos # (Auto) 100 Baso # (Auto) 100 Blood Type A Positive Antibody Screen Negative Assessment and Plan Assessment and Plan Assessment and Plan narrative: Patient delivered prior to my arrival. had Apgars of 9 and 9. Mother and infant were doing well she would an epidural in place.
[2023-05-14 06:02] VITALS: BP 111/54; PULSE 79; TEMP 36.7
--- NOTE | 2023-05-14 06:03 | P.PCNOB_ITS ---
Events: No Care Labor & Delivery Delivery date: 05/14/23 Intrapartal Events: None (Patient delivered prior to arrival. I was there for the delivery of the placenta and repair of the second-degree laceration) Induction method: none Delivery monitor: external FHT Route of delivery: L&D Laceration Description: Perineal - 2nd Degree (Patient had a second-degree laceration it was repaired with 3 0 Vicryl sutures were placed on the rectal capsule.) Delivery repair: vicryl (3-0) Estimated blood loss (mL): 20 Anesthesia Type: Epidural Complications: Patient delivered prior to my arrival. Narrative: Upon my arrival mother was holding the in her arms. The umbilical cord was protruding through the vagina. Following setting up I delivered the placenta intact cord blood was obtained from the placenta as the cord was collapsed. At this point the perineum was inspected and there was a second- degree laceration that extended down to but did not include the rectal sphincter. Two [id number] of 3-0 Vicryl placed in the rectal sphincter following this the vaginal mucosa was reapproximated with 3-0 Vicryl in a running locking suture. The perineum was repaired with 2 [id number] of 3- 0 Vicryl and the perineum itself was reapproximated with 3-0 Vicryl subcuticular. Estimated blood loss was 200 cc patient tolerated delivery well. Infant was nursing at mother's breast. [place] Baby 1: Infant gender: Male Presentation: vertex Position: Left Occiput Transverse Placenta delivery description: Spontaneous Cord Vessel Description: 3 Vessels score (1 min): 8 score (5 min): 9 Plan for aftercare: Routine care
[2023-05-14] MEDS: IBUPROFEN 600 MG TABLET PO ×3 (08:15→21:14)
[2023-05-14] MEDS: DERMOPLAST SPRAY 20% 60 ML 1 SPRAY TOP (08:15)
[2023-05-14] MEDS: ACETAMINOPHEN 325 MG TABLET 650 MG PO ×3 (08:17→23:33)
[2023-05-14] MEDS: PRENATAL VIT,CALC/IRON/FOLIC 1 TABLET 1 TAB PO (08:19)
[2023-05-14] MEDS: DOCUSATE 100 MG CAPSULE PO ×2 (08:19→20:38)
[2023-05-14 15:08] VITALS: TEMP 36.6
[2023-05-14 17:30] VITALS: TEMP 36.6
[2023-05-14] MEDS: LANOLIN OINT 7 GM 1 APPLIC TOP (23:35)
[2023-05-15] MEDS: IBUPROFEN 600 MG TABLET PO ×2 (03:47→09:21)
--- NOTE | 2023-05-15 07:58 | P.DS_ITS ---
Discharge Providers Provider Date of admission: 05/13/23 19:16 Discharge Date: 05/15/23 Primary care physician: Steve Lucas DO Consults: 05/13/23 21:35 Consult to Anesthesiology Urgent Comment: Consulting Provider: Anesthesiologist Reason for consultation: Epidural 05/15/23 06:08 Consult to Ticket Manager Routine Comment: Discharge provider: Demetris Grant MD Summary Hospital Course Date Patient Seen: 05/15/23 Time Patient Seen: 07:59 Diagnoses: 1. Term cyesis 2. spontaneous vaginal delivery 3. Group B strep positive redding allergic Hospital Course: Patient presented to labor and delivery at which time she was 4 cm. She was allowed to labor an epidural was placed for labor analgesia. Because of her group B strep status she was penicillin allergy she was started on clindamycin. She got 2 doses in before delivery. She went from 8 to complete in a very rapid fashion. The physician was summoned but the was delivered before the arrival of the physician. The placenta was delivered and inspected noted to be intact. Infant had good Apgars. Estimated blood loss was only minimal. course has been unremarkable she is . Peripartum Data Delivery Method: Natural Vaginal Laceration Description: Perineal - 2nd Degree (Repaired with 3-0 Vicryl.) complications: none Discharge Diagnosis (1) : Status: Acute Problem Details: Patient's has resolved with delivery. Status at Discharge Cognitive/behavioral status at discharge: oriented Functional status at discharge: independent ambulation Overall status at discharge: patient is not back to baseline (Patient relates her pain is roughly 2-3 while lying but when moving it increases to roughly 4-5. She states she is average having adequate pain control.) Time Spent with Patient Time attestation: Total time spent providing and/or coordinating discharge services: Time spent: Less than 30 minutes Specific discharge activities: Reviewed with patient breast-feeding, contraception, mastitis, endomyometritis. She needs to be seen back in the clinic in 6 weeks. Objective Labs 05/13/23 21:10 Exam Const General: cooperative and healthy appearing Nutritional Appearance: average body habitus Eyes General: appearance normal, both eyes and all related structures Bimanual Exam- Vagina & Uterus: uterine size normal (Uterus is at the level of the umbilicus. It is mild to moderately tender.) Extrem Right lower extremity: normal to inspection (No calf tenderness) Left lower extremity: normal to inspection (No calf tenderness) Discharge Plan Discharge Plan Patient Disposition: Home Discharge orders & Medications Prescriptions: New ibuprofen 600 mg Tablet 600 mg PO Q6HR PRN (Reason: Pain, Mild (1-3)) Qty: 20 0RF Continued prenat.vits,chase,srk-qkmw-summk Tablet 1 tab PO DAILY cholecalciferol (vitamin D3) [D3-2000] 50 mcg (2,000 unit) capsule 50 mcg PO DAILY Follow up/Referrals: Steve Lucas DO [Primary Care Provider] - Diet/Activity/Treatments Diet comment: Regular diet Visit Report/Discharge Packet Stand Alone Forms: Patient Portal/API, Stroke Signs & Symptoms Discharge Data Primary Care Provider: Steve Lucas
[2023-05-15] MEDS: ACETAMINOPHEN 325 MG TABLET 650 MG PO (09:20)
[2023-05-15] MEDS: PRENATAL VIT,CALC/IRON/FOLIC 1 TABLET 1 TAB PO (09:21)
[2023-05-15] MEDS: DOCUSATE 100 MG CAPSULE PO (09:21)
[2023-05-15 12:06] VITALS: BP 96/63; PULSE 63; RESP 15; TEMP 36.6
== END 2023-05-15 11:42 | disposition home or self-care (01) | DRG 560 ==
PROVIDERS: Admitting Provider Obstetrics & Gynecology; PCP Family Medicine; Referring Provider Obstetrics & Gynecology; Visit Provider Obstetrics & Gynecology
DX: O99.824 Streptococcus B carrier state complicating childbirth (principal); O70.1 Second degree perineal laceration during delivery; Z3A.40 40 weeks gestation of pregnancy; Z37.0 Single live birth; O76 Abnormality in fetal heart rate and rhythm complicating labor and delivery
CPT/HCPCS: 36415; 59050; 59409; 85025; 86850; 86900; 86901; G0379; J2405; J3010